=== PATIENT | female | born 1965 | race Caucasian/White ===

== ENCOUNTER 2017-09-30 19:51 | Emergency (ER) | payer OTHER ==
[2017-10-01 01:27] VITALS: BP 131/74
== END 2017-10-01 01:27 | disposition home or self-care (01) ==
LOC: ED 19:51
DX: H66.92 Otitis media, unspecified, left ear (principal); J06.9 Acute upper respiratory infection, unspecified; G44.209 Tension-type headache, unspecified, not intractable

== ENCOUNTER 2018-08-15 09:05 | Emergency (ER) | payer OTHER ==
[~2018-08-15] VITALS: Ht 58.4 cm; Wt 87.1 kg
[2018-08-15 09:13] VITALS: Ht 58.4 cm; Wt 87.1 kg
[2018-08-15 10:24] LABS: BASOPHIL % 0.3 % (0-2); PLATELET COUNT 347 x10^3mcL (130-400); RED CELL DISTRIBUTION WIDTH 13.7 % (11.5-14.5)
[2018-08-15 10:27] LABS: CALCIUM 8.6 mg/dL (8.5-10.1); CARBON DIOXIDE 27.1 mmol/L (21-32); CHLORIDE SERUM 110 mmol/L (98-107); GFR1 > 60 mL/min; GLUCOSE SERUM 135 mg/dL (74-106); SODIUM SERUM 142 mmol/L (136-145)
[2018-08-15 10:34] LABS: ALBUMIN 3.4 g/dL (3.4-5.0); ALKALINE PHOSPHATASE 150 U/L (46-116); ALT/SGPT 30 U/L (14-59); AST/SGOT 31 U/L (15-37); BILIRUBIN TOTAL 0.38 mg/dL (0.20-1.00)
[2018-08-15 14:58] VITALS: BP 109/72
== END 2018-08-15 15:32 | disposition home or self-care (01) ==
LOC: ED 09:05
PROVIDERS: Emergency Medicine
DX: J40 Bronchitis, not specified as acute or chronic (principal); R06.03 Acute respiratory distress
CPT/HCPCS: 36415; 83880; 85378; J7512; J7620; Q9967